=== PATIENT | female | born 1970 | race Caucasian/White ===

== ENCOUNTER 2021-10-26 15:22 | Emergency (ER) | payer OTHER ==
[2021-10-26 17:52] LABS: BLOOD UREA NITROGEN,BUN 16 mg/dL (7.0-18.0); CARBON DIOXIDE,CO2 29.6 mmol/L (21.0-32.0); CHLORIDE,CL 103 mmol/L (98-107); GLUCOSE RANDOM 111 mg/dL (74-106); POTASSIUM,K 3.9 mmol/L (3.5-5.1); SODIUM,NA 141 mmol/L (136-145)
[2021-10-26 17:55] LABS: ESTIMATED GFR 89 mL/min (>60)
[2021-10-26 18:37] LABS: CORONAVIRUS COVID-19 NAA NEGATIVE (NEGATIVE); INFLUENZA A NAA NEGATIVE (NEGATIVE); INFLUENZA B NAA NEGATIVE (NEGATIVE)
== END 2021-10-26 18:50 | disposition home or self-care (01) ==
LOC: MW.ED 15:22
DX: R42 Dizziness and giddiness (principal); Z79.899 Other long term (current) drug therapy; Z20.822 Contact with and (suspected) exposure to COVID-19
CPT/HCPCS: 0240U; 36415; 71046; 80053; 81003; 84484; 85025; 93005; 99284; 93010